=== PATIENT | male | born 1975 | race Caucasian/White ===

== ENCOUNTER 2020-03-19 13:35 | Emergency (ER) | payer OTHER ==
[~2020-03-19] VITALS: Ht 185.4 cm; Wt 120.2 kg
[~2020-03-19 13:35] MED LIST: AMBIEN CR12.5 MG PO; BUSPAR30 MG PO; CLARITIN10 MG PO; KEFLEX500 MG PO; LAMICTAL100 MG PO; MELATONIN10 M2 PO; MULTIVITAMINS1 EAC7 PO; PROZAC20 MG PO; RISPERDAL2 MG PO
[2020-03-19] MEDS ORDERED: LITHIUM CARBON300 M3 PO (13:50)
[2020-03-19] MEDS ORDERED: LIPITOR 20 MG T20 M1 PO (13:51)
[2020-03-19] MEDS ORDERED: CELEXA 10 MG TA10 M1 PO (13:51)
[2020-03-19] MEDS ORDERED: OXCARBAZEPINE600 MG PO (13:51)
[2020-03-19 15:20] VITALS: BP 125/70
== END 2020-03-19 15:21 | disposition home or self-care (01) ==
LOC: M.ERS 13:35
DX: K64.5 Perianal venous thrombosis (principal); M25.522 Pain in left elbow